=== PATIENT | female | born 1950 | race Asian ===

== ENCOUNTER 2018-11-06 09:29 | Outpatient (CLI) | payer OTHER, MEDICARE ==
[~2018-11-06 09:29] MED LIST: ALORA0.05 MG TD; AMLO5TAB PO; AMOX500C85 PO; FLUNISOLIDE29 MCG; MELOXICAM7.5 MG OR; PARO20TA3 PO
== END 2018-11-06 23:59 ==
LOC: RAD 09:29 → EDBD 09:30 → RAD 09:30
DX: Z13.820 Encounter for screening for osteoporosis (principal); N95.8 Other specified menopausal and perimenopausal disorders